=== PATIENT | female | born 2005 | race African-American/Black ===

== ENCOUNTER 2025-06-12 01:39 | Emergency (ER) | payer OTHER ==
[~2025-06-12] VITALS: Ht 162.6 cm; Wt 66.8 kg
[~2025-06-12 01:39] MED LIST: AMOX875T2 PO; CETI10CA2 PO; PEPC1TAB5 PO; PRED10TA2 PO
[2025-06-12 01:40] VITALS: TEMP 99.3
[2025-06-12] MEDS: predniSONE 20 MG TAB PO ONE (02:35)
[2025-06-12] MEDS ORDERED: HYDR-3363 PO (03:50)
[2025-06-12] MEDS ORDERED: CETI10CA2 PO (03:50)
[2025-06-12] MEDS ORDERED: PRED20TA PO (03:50)
[2025-06-12 04:01] VITALS: BP 117/59; O2SAT 98
== END 2025-06-12 04:02 | disposition home or self-care (01) ==
LOC: M ED 01:39
DX: L50.9 Urticaria, unspecified (principal)
CPT/HCPCS: 99283; J7512

== ENCOUNTER 2025-10-31 18:53 | Emergency (ER) | payer OTHER ==
[~2025-10-31] VITALS: Ht 162.6 cm; Wt 66.4 kg
[~2025-10-31 18:53] MED LIST changes: +HYDR-3363 PO; +PRED20TA PO
[2025-10-31 21:08] VITALS: BP 115/55; TEMP 97.8; O2SAT 100
== END 2025-10-31 22:09 | disposition left against medical advice (07) ==
LOC: M ED 18:53
DX: Z53.21 Procedure and treatment not carried out due to patient leaving prior to being seen by health care provider (principal)